=== PATIENT | female | born 1995 | race Caucasian/White ===

== ENCOUNTER 2025-04-18 00:52 | Emergency (ER) | payer BC, SELFPAY ==
[2025-04-18 01:01] VITALS: BP 150/100; BMI 27.3
--- NOTE | 2025-04-18 02:09 | ED.GENMED ---
History of Present Illness
General
Chief Complaint: Musculo-Skeletal Complaint
Source: patient
History of Present Illness
History of Present Illness:
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 Since that time, notes pain with
standing/ambulation int hat area. No other injury noted. No fall to ground.
Past History
Past History
ED Past Medical History: Psychiatric and Other (pcos)
ED Past Surgical History: Gynecological
Social History
Tobacco: Non-smoker
Alcohol: None
Drug: Marijuana ((medical))
Personal: Single
Employment: Employed
Phy Exam
Physical Exam
Physical Exam:
GENERAL: Alert , in no apparent distress
NECK: supple
ENT: mmm.
CARDIAC: Regular rate and rhythm .
LUNGS: Clear breath sounds bilaterally, no acute respiratory distress, no wheezes/rales/rhonchi
NEUROLOGICAL: Alert and oriented, nonfocal
SKIN: Warm and dry, skin intact.
MUSCULOSKELETAL: well perfused. There is ttp noted lateral aspect prox/mid L foot dorsal aspect, no bruising/deformity, no skin changes noted. Pain with ROM (plntr flexion). Ankle nontender to palpation.
PSYCH: Normal and appropriate interaction.
Course
Orders/Labs/Results
Orders:
Orders
04/18/25 00:57
CR Ankle - Left Min 3 Views Urgent
Comment:
Reason For Exam: pain
Foot, Left 3 View [CR Foot - Left Min 3 Views] Urgent
Comment:
Reason For Exam: pain
Vital Signs
Initial and Last Documented VS:
Initial Vital Signs
Temp Pulse Resp BP Pulse Ox
98.3 F 107 22 150/100 99
04/18/25 01:01 04/18/25 01:01 04/18/25 01:01 04/18/25 01:01 04/18/25 01:01
Last Documented Vital Signs
Temp Pulse Resp BP Pulse Ox
98.3 F 97 22 130/91 99
04/18/25 01:01 04/18/25 02:19 04/18/25 01:01 04/18/25 02:19 04/18/25 02:15
*Pulse Oximetry
SaO2: 99
Oxygen Mode of Delivery: Room air
Patient hypoxic: no
*Critical Care Note
Total Time (30-74mins, 75-104mins- exclusive of procedures): Not Applicable
Update Note
Update Note:
Patient presents to the Emergency Department with L foot/ankle pain
Number and Complexity of Problems Addressed at the Encounter
� Chronic conditions affecting care:
� Acute Exacerbation and/or Progression of Chronic Illness:
� Differential Diagnosis includes:but not limited to fracture of ankle or foot, contusion, sprain, strain, etc
Amount and/or Complexity of Data to be Reviewed and Analyzed
� I performed an independent evaluation of and my interpretation is:
EKG:
CT:
Xrays: read by me, nad ankle and foot
Laboratory Studies:
Other:
� Review of other/old records reveals:
� Clinical information was obtained by an independent historian:
� Prescriptions/Medications Considered but not given:
� Further testing considered but not performed:
Risk of Complications and/or Morbidity or Mortality of Patient Management
� Social determinants of health affecting care:
� Discussion with other providers (PCP, Hospitalists, Consultants, etc):
� Escalation of care including admission/observation vs risk of discharge considered: No fx noted. Pt with pain with ambulation/standing. REcommend nwb, AARON, prompt f/u. She already took apap and nsaid here. Walkng boot for
immobilzation.
ED Attending Note
-
Portions of this chart may have been created with voice recognition software.� Occasional wrong word or��sound alike� substitutions may have occurred due to the inherent limitations of voice recognition software.
Discharge Plan
Departure
Patient Disposition: Home (Routine Discharge)
Date of Disposition: 04/18/25
Time of Disposition: 02:13
Patient with high blood pressure during this ER visit?: Yes
Condition: Good
Discharge Problem:
Foot sprain
Instructions: Foot sprain, BLOOD PRESSURE
Referrals:
UNKNOWN - PT DOES,NOT KNOW [Family Provider]
Activity Restrictions/Additional Instructions:
PLEASE AVOID WEIGHT BEARING UNTIL YOU ARE CLEARED TO DO SO BY YOUR DOCTOR. SEE YOUR DOCTOR THIS WEEK IN CLOSE FOLLOW UP. IF YOU DEVELOP INCREASING/NEW PAIN, FEVER, NUMBNESS, NEW/INCREASING SWELLING OR PAIN, OR OTHER WORRISOME SIGNS, GO TO THE ER
IMMEDIATELY!
Interventions
Interventions:
*Risk Screen - Suicide Last Done: 04/18/25 01:01
*General Assessment Last Done: 04/18/25 01:01
*Neglect/Abuse Screening Last Done: 04/18/25 01:01
*Nursing Disposition Last Done: 04/18/25 02:34
ED-Musculoskeletal Assessment Last Done: 04/18/25 01:09
Discharge Date and Time
Discharge Date/Time: 04/18/25 02:35
Print Language: MARTINIQUAIS
[2025-04-18 02:19] VITALS: BP 130/91
== END 2025-04-18 02:35 | disposition home or self-care (01) ==
LOC: EMR 00:52
PROVIDERS: EMERGENCY PHYSICIAN Emergency Medicine
DX: S93.602A Unspecified sprain of left foot, initial encounter (principal); X50.1XXA Overexertion from prolonged static or awkward postures, initial encounter
CPT/HCPCS: 99283; 73610; 73630

== ENCOUNTER → 2025-05-29 07:12 | Outpatient (REF) | payer OTHER, BC, SELFPAY | LOC: PAVMRI 07:12 | PROVIDERS: ATTENDING PHYSICIAN Student in an Organized Health Care Education/Training Program; FAMILY PHYSICIAN Emergency Medicine | DX: M79.672 Pain in left foot (principal); M25.572 Pain in left ankle and joints of left foot | CPT/HCPCS: 73718; 73721 ==